=== PATIENT | male | born 1950 | race African-American/Black ===

== ENCOUNTER 2018-09-27 13:47 | Emergency (ER) | payer OTHER ==
[~2018-09-27] VITALS: Ht 170.2 cm; Wt 82.6 kg
[2018-09-27 14:40] LABS: PLATELET COUNT 274 K/uL (142-355)
[2018-09-27 15:01] LABS: POTASSIUM 3.8 mmol/L (3.6-5.2); SODIUM 137 mmol/L (136-145)
[2018-09-27 18:10] VITALS: BP 131/76; TEMP 97.7
== END 2018-09-27 18:10 | disposition home or self-care (01) ==
LOC: ED 13:47
PROVIDERS: Emergency Medicine
DX: E11.9 Type 2 diabetes mellitus without complications (principal); E86.0 Dehydration; F43.8 Other reactions to severe stress
CPT/HCPCS: 36415; 80053; 81000; 82550; 83036; 84484; 85027; 93005; 96360; 99284